=== PATIENT | female | born 1950 | race Caucasian/White ===

== ENCOUNTER 2023-02-26 19:17 | Outpatient (CLI) | payer MEDICARE, OTHER, SELFPAY | END 2023-02-26 19:18 | disposition home or self-care (01) | LOC: AMB 03-18 02:40 | PROVIDERS: Visit Provider Family Medicine | DX: S09.90XA Unspecified injury of head, initial encounter (principal); S99.912A Unspecified injury of left ankle, initial encounter; W10.9XXA Fall (on) (from) unspecified stairs and steps, initial encounter; Y93.79 Activity, other specified sports and athletics; Y92.008 Other place in unspecified non-institutional (private) residence as the place of occurrence of the external cause | CPT/HCPCS: A0425; A0429 ==

== ENCOUNTER 2023-02-26 19:37 | Emergency (ER) | payer MEDICARE, OTHER, SELFPAY ==
[2023-02-26 19:44] VITALS: BP 146/93; PULSE 73; RESP 16; TEMP 36.3; O2SAT 96
--- NOTE | 2023-02-26 19:55 | CRLHL7_ITS ---
For Patients: As a result of the Century Cures Act, medical imaging exams and procedure reports are released immediately into your electronic medical record. You may view this report before your referring provider. If you have questions, please contact your health care provider. Indication: Trauma. Technique: Right ankle 3 views. Comparison: None. Findings: No acute displaced fracture or malalignment. No soft tissue swelling. Joint spaces are maintained. Posterior calcaneal enthesophyte. Bony mineralization is age appropriate. No acute displaced fracture. Dictated by Hugo Moyer MD @ 02/26/2023 9:34:42 PM (Electronically Signed)
--- NOTE | 2023-02-26 19:56 | ED_ITS ---
HPI - Extremity Injury (Lower) General Chief Complaint: Extremity Pain/Injury, Lower Stated Complaint: Ankle Injury Time Seen by Provider: 02/26/23 19:43 History of Present Illness HPI Narrative: This 72-year-old female comes in with an injury to her right ankle that occurred just prior to arrival. She was at a choir concert and misstepped on the last step causing her ankle to twist. She fell sideways bumping her head on a wall. She did not have loss of consciousness. She complains of pain in the lateral aspect of her right ankle. She has not been up to ambulate since this injury. She does not report headache or other neurologic symptoms. She is not on any blood thinners. Related Data Previous Rx's Medication Instructions Recorded Crutches- Adult #1 ea 02/26/23 Allergies Allergy/AdvReac Type Severity Reaction Status Date / Time cephalexin [From Keflex] Allergy Verified 02/26/23 19:49 Penicillins Allergy Verified 02/26/23 19:49 iodine AdvReac Verified 02/26/23 19:49 sufla Allergy Uncoded 02/26/23 19:49 Review of Systems Status of ROS: Reports: 10 or more systems reviewed and unremarkable except as noted in History and below Narrative: Constitutional: No fevers, no weight gain or loss. Eyes: No discharge. No vision changes. HENT: No congestion, no sore throat, no ear pain. Cardiovascular: No chest pain, no palpitations. Respiratory: No shortness of breath, no wheezes, no cough. Gastrointestinal: No abdominal pain, no vomiting, no diarrhea. Genitourinary: No dysuria, no hematuria. Musculoskeletal: Right ankle injury as described above. Skin: No rashes, no pruritis. Neurological: No dizziness, weakness, sensory change, speech change. Endo/Heme/Allergies: No bruising or bleeding. No polydipsia. Pysch: no suicidality, no anxiety, no insomnia. All other systems reviewed and are negative. Exam Narrative: Exam Narrative: Constitutional: Well-developed, well-nourished, no acute distress. HEENT: Normocephalic, atraumatic. Neck: Normal range of motion. Nontender. Supple. Heart: Regular. No murmurs. Normal rate. Intact distal pulses. Lungs: Clear to auscultation. No chest discomfort. No wheezes, rhonchi, or rales. Abdomen: Normal bowel sounds. Nontender. No rebound tenderness. Genitalia: Deferred. Back: No midline tenderness. Normal range of motion. Extremities: Right ankle has mild to moderate swelling over the lateral malleolus. There is no joint effusion or ligament instability. No tenderness when palpating over the medial malleolus. Skin: Intact. No rash. Warm. No erythema or pallor. Neurologic: No altered sensation. No weakness. Alert and oriented. Psychiatric: No suicidality. No anxiety or depression. No insomnia. Nursing notes and vitals signs are reviewed. Const: Vital Signs, click to edit/add: Vital Signs - 24 hr 02/26/23 19:44 Temperature 97.4 F L Pulse Rate [Right Pulse Oximeter] 73 Respiratory Rate 16 Blood Pressure [Ri ght Upper Arm] 146/93 H Pulse Oximetry 96 Oxygen Delivery Me thod Room Air Course Vital Signs Vital signs: Initial Vital Signs Temperature 97.4 F L 02/26/23 19:44 Temperature Source Temporal Artery Scan 02/26/23 19:44 Pulse Rate 73 02/26/23 19:44 Pulse Rhythm Regular 02/26/23 19:44 Respiratory Rate 16 02/26/23 19:44 Blood Pressure 146/93 H 02/26/23 19:44 Blood Pressure Mean 110 H 02/26/23 19:44 Blood Pressure Position Semi-Fowlers 02/26/23 19:44 Pulse Oximetry 96 02/26/23 19:44 Oxygen Delivery Method Room Air 02/26/23 19:44 Vital Signs Temperature 97.4 F L 02/26/23 19:44 Pulse Rate 73 02/26/23 19:44 Respiratory Rate 16 02/26/23 19:44 Blood Pressure 146/93 H 02/26/23 19:44 Pulse Oximetry 96 02/26/23 19:44 Oxygen Delivery Method Room Air 02/26/23 19:44 Temperature 97.4 F L 02/26/23 19:44 Pulse Rate 73 02/26/23 19:44 Respiratory Rate 16 02/26/23 19:44 Blood Pressure 146/93 H 02/26/23 19:44 Pulse Oximetry 96 02/26/23 19:44 Oxygen Delivery Method Room Air 02/26/23 19:44 MDM - Extremity Injury (Lower) MDM Narrative Medical decision making narrative: This patient comes in with an injury to her right ankle as described above. X- ray imaging by my review, with radiology report pending, shows no evidence of fracture or dislocation. This patient has a typical ankle sprain involving the lateral malleolus and associated ligaments. She received crutches and is encouraged to increase activity as tolerated. She can use [id number] medicines as needed and directed. Discharge Plan Discharge Clinical Impression: Ankle sprain and strain Patient Disposition: Home, Self-Care Condition: Stable Additional Instructions: Use crutches as needed. Increase activity as tolerated. Use [id number] medicines as needed and directed. Follow up with MD or return if worsening. Prescriptions: New (DME) Crutches- Adult Misc See Rx Instructions .[facility] Qty: 1 0RF Rx Instructions: As directed Stand Alone Forms: [employer] ([employer] Info Instructions
== END 2023-02-26 20:56 | disposition home or self-care (01) ==
PROVIDERS: Emergency Provider Emergency Medicine Emergency Medical Services
DX: S93.401A Sprain of unspecified ligament of right ankle, initial encounter (principal); X50.1XXA Overexertion from prolonged static or awkward postures, initial encounter
CPT/HCPCS: 73610; 99283; 99284